=== PATIENT | female | born 1990 | race Caucasian/White ===

== ENCOUNTER 2023-02-28 22:20 | Inpatient (IN) ==
[2023-03-01] MEDS ORDERED: miSOPROStol 100 mcg TAB VAGINAL ONE (00:27)
[2023-03-01] MEDS ORDERED: Lactated Ringers 1000 ml BAG 1,000 ML IV ONE (00:27)
[2023-03-01] MEDS ORDERED: Nalbuphine 10 MG/ML 1 ML VIAL IV PRN (00:27)
[2023-03-01] MEDS ORDERED: Promethazine INJ(RESTRICTED) 25 MG/ML 1 ml VIAL IV PRN (00:27)
[2023-03-01] MEDS ORDERED: Buffered Lidocaine 1% SYRIN 1 ml INTRADERM ONE (00:27)
[2023-03-01] MEDS ORDERED: ceFAZolin VIAL 1 GM in NS 0.9% 50 ML 50 ML IVPB SCH (01:00)
[2023-03-01 02:24] LABS: ABS Basophils 0.1 10^3/uL (0.0-0.1); ABS Eosinophils 0.2 10^3/uL (0.0-0.5); ABS Monocytes 0.9 10^3/uL (0.0-0.9); ABS Neutrophils 8.6 10^3/uL (1.5-7.6); Eosinophil % 1.6 %; Hemoglobin 12.2 g/dL (11.5-14.3); Lymphocyte % 23.6 %; Mean Corpuscular Hemoglobin 30.8 pg (27-33); Mean Corpuscular Hgb Conc 34.9 g/dL (31-36); Mean Corpuscular Volume 88.1 fL (80-97); Mean Platelet Volume 9.7 fL (7.5-11.2); Platelet Count 317 10^3/uL (150-450); Red Blood Count 3.97 10^6/uL (3.63-4.92); Red Cell Distribution Width 13.6 % (12-17); White Blood Count 12.9 10^3/uL (3.8-11.8)
[2023-03-01] MEDS: Lactated Ringers 1000 ml BAG 1,000 ML IV SCH ×3 (02:25→05:40)
[2023-03-01 02:28] LABS: Urine Appearance Cloudy; Urine Bilirubin Negative (Negative); Urine Blood Negative (Negative); Urine Color Yellow; Urine Glucose Negative (Negative); Urine Ketones 1+ (Negative); Urine Nitrite Negative (Negative); Urine Protein Negative (Negative); Urine Specific Gravity 1.016 (1.002-1.030); Urine Urobilinogen Negative (Negative)
[2023-03-01] MEDS: ceFAZolin 1 GM in Dextrose 1 GM/50 ML BAG IVPB SCH ×2 (02:32→11:02)
[2023-03-01] MEDS ORDERED: CEFAZOLIN IVPB SCH (03:00)
[2023-03-01] MEDS ORDERED: ADVAN IVPB SCH (03:00)
[2023-03-01] MEDS ORDERED: NS 0.9% IVPB SCH (03:00)
[2023-03-01] MEDS ORDERED: OBEPIDURAL (200 ML) 200 ML EPIDURAL ONE (03:12)
[2023-03-01] MEDS ORDERED: Lidocaine 1% w EPI 1:200,000 SDV 30 ML VIAL ONE (03:12)
[2023-03-01 03:41] LABS: Urine Benzodiazepine Screen None Detected (None Detect); Urine Cannabinoids Screen None Detected (None Detect); Urine Opiates Screen None Detected (None Detect)
[2023-03-01] MEDS: Phenylephrine 40 mcg/mL 10mL (400mcg) SYRINGE IV PUSH PRN ×3 (04:53→05:38)
[2023-03-01] MEDS ORDERED: OBEPIDURAL (200 ML) 200 ML EPIDURAL SCH (05:00)
[2023-03-01] MEDS: Oxytocin in LR 20,000 MILLI.UNIT/1,000 ML BAG IV SCH ×2 (08:11→20:38)
[2023-03-01] MEDS ORDERED: Glycerin ADULT 2.4 gm SUPP PR PRN (15:34)
[2023-03-01] MEDS ORDERED: Oxytocin in LR 20,000 MILLI.UNIT/1,000 ML BAG IV SCH (15:35)
[2023-03-01] MEDS ORDERED: Lactated Ringers 1000 ml BAG 1,000 ML IV SCH (16:00)
[2023-03-01] MEDS: Dibucaine 1% OINT 28.35 GM TUBE PR PRN ×2 (16:23→19:46)
[2023-03-01] MEDS: Witch Hazel PAD JAR TOPICAL PRN ×2 (16:23→19:46)
[2023-03-02 07:11] LABS: ABS Basophils 0.1 10^3/uL (0.0-0.1); ABS Eosinophils 0.1 10^3/uL (0.0-0.5); ABS Lymphocytes 2.6 10^3/uL (1.0-4.8); ABS Monocytes 1.3 10^3/uL (0.0-0.9); ABS Neutrophils 14.1 10^3/uL (1.5-7.6); Eosinophil % 0.6 %; Hematocrit 29.1 % (35-45); Hemoglobin 10.1 g/dL (11.5-14.3); Lymphocyte % 14.2 %; Mean Corpuscular Hemoglobin 30.9 pg (27-33); Mean Corpuscular Hgb Conc 34.8 g/dL (31-36); Mean Corpuscular Volume 88.7 fL (80-97); Mean Platelet Volume 9.4 fL (7.5-11.2); Platelet Count 234 10^3/uL (150-450); Red Blood Count 3.28 10^6/uL (3.63-4.92); Red Cell Distribution Width 13.9 % (12-17); White Blood Count 18.1 10^3/uL (3.8-11.8)
[2023-03-03 08:01] VITALS: BP 114/63
== END 2023-03-03 17:00 | disposition home or self-care (01) | DRG 807 ==
LOC: MCHOBOUT 22:20 → MCHOB 03-01 00:33
PROVIDERS: ADMIT Obstetrics & Gynecology; ATTEND Obstetrics & Gynecology